=== PATIENT | male | born 1985 ===

== ENCOUNTER 2016-02-25 16:50 | Emergency (ER) | payer OTHER ==
[2016-02-25] MEDS ORDERED: Sulfamethox/Trimethoprim SS 400/80* TAB PO ONE (18:19)
[2016-02-25] MEDS ORDERED: Cephalexin CAP* 500 MG PO ONE (18:20)
[2016-02-25] MEDS ORDERED: Sulfamethox/Trimethoprim DS 800/160* TAB PO ONE (18:27)
--- NOTE | 2016-02-25 18:50 | UC ---
Hand/Wrist HPI - HPI Summary HPI Summary: 30 yo male with left middle finger pain and swelling abraided finger 4 days ago no pip red swollen limited ROM fever and shaking chills no hx MRSA - History Of Current Complaint Chief Complaint: UCUpperExtremity Stated Complaint: FINGER INJURY Time Seen by Provider: 02/25/16 18:11 Hx Obtained From: Patient Mechanism Of Injury: abraided when it was caught in a door Onset/Duration: Sudden Onset Severity Initially: Mild Severity Currently: Moderate Pain Intensity: 7 Pain Scale Used: 0-10 Numeric Character Of Pain: Aching, Throbbing Aggravating Factor(s): Movement Alleviating: Nothing Associated Signs And Symptoms: Positive: Swelling, Redness, Fever Related History: Dominant Hand Right - Allergies/Home Medications Allergies/Adverse Reactions: Allergies Allergy/AdvReac Type Severity Reaction Status Date / Time No Known Allergies Allergy Verified 02/25/16 18:09 Home Medications: Home Medications NK [No Home Medications Reported] 02/25/16 [History Confirmed 02/25/16] PMH/Surg Hx/FS Hx/Imm Hx Previously Healthy: Yes - Surgical History Surgical History: None - Family History Known Family History: Negative: Cardiac Disease, Hypertension, Diabetes - Social History Alcohol Use: Daily Substance Use Type: Marijuana Substance Use Comment - Amount & Last Used: daily Smoking Status (MU): Never Smoked Tobacco Review of Systems Constitutional: Fever, Chills Skin: Negative Eyes: Negative ENT: Negative Respiratory: Negative Cardiovascular: Negative Gastrointestinal: Negative Genitourinary: Negative Motor: Negative Neurovascular: Negative Musculoskeletal: Arthralgia, Decreased ROM Neurological: Negative Psychological: Negative All Other Systems Reviewed And Are Negative: Yes Physical Exam Triage Information Reviewed: Yes Appearance: Well-Appearing, No Pain Distress, Well-Nourished Vital Signs: Initial Vital Signs Temp 100.8 F 02/25/16 18:03 Pulse 115 02/25/16 18:03 Resp 16 02/25/16 18:03 BP 134/84 02/25/16 18:03 Pulse Ox 100 02/25/16 18:03 Vital Signs Reviewed: Yes Eyes: Positive: Conjunctiva Clear ENT: Positive: Hearing grossly normal. Negative: Nasal congestion, Nasal drainage, Tonsillar exudate, Trismus, Muffled/hoarse voice Neck: Positive: Supple, Nontender Respiratory: Positive: Lungs clear, Normal breath sounds, No respiratory distress, No accessory muscle use Cardiovascular: Positive: RRR, No Murmur Musculoskeletal: Positive: ROM Limited @, Edema @ Neurological Exam: Normal Neurological: Positive: Alert Psychological: Positive: Normal Response To Family Skin Exam: Normal Hand/Wrist Course/Dx - Differential Dx/Diagnosis Provider Diagnoses: left middle finger infection. ?septic PIP joint/vs abscess. cellulitis and ascending lymphangiitis - Physician Notifications Discussed Patient Care With: Dr. Williamson ([id number])...he will see pt here Instructed by Provider To: Admit As Inpatient Discharge - Discharge Plan Condition: Guarded Disposition: OTHER Discharge Disposition Comment: direct admission Referrals: Jaleel Williamson MD [Medical Doctor] - Images Hands: 1 - red/swollen. unable to extend finger 2 - ascending lymphangitis
--- NOTE | 2016-02-25 18:54 | RAD ---
Indication: Left finger infection. 3 views of the left middle finger demonstrates soft tissue swelling in the dorsal aspect of the proximal interphalangeal joint. No fracture or abnormal erosions noted. IMPRESSION: No fracture is identified. Soft tissue swelling is noted dorsal to the proximal interphalangeal joint.
[2016-02-25] MEDS ORDERED: Bupivacaine 0.25% SDV* 30 ML ONE (19:03)
--- NOTE | 2016-02-25 20:53 | PN ---
Progress Note - Progress Note Note: Please see my full dictated consult note. Briefly, I saw Mr. Colunga in the emergency room. He got the finger caught in a restaurant door a few days ago. He had a superficial volar laceration over the PIP joint. This was resolving uneventfully until this morning he began to have pain in the area. It became intense throughout the day. 3 hours prior to coming to the [facility] it began to turn red and he felt somewhat ill so he came to the [facility]. Upon arrival here he was febrile. I was called and I examined the finger. There is significant swelling in the area of the PIP joint but passive flexion from 10 -90 degrees without too much pain. There is some lymphangitis and mottling of the skin over the dorsal hand. I performed and I&D. Cultures were taken and will be sent to the hospital in the morning. There was significant concern to me that on the dorsum of the hand there was separation at the fascial planes without jason purulence but more murky/seropurulent fluid. Upon probing the separation of the fascial planes tracked to the dorsum of the hand. I performed a separate incision just proximal and ulnar to the PIP joint. When I probed this wound the separation at the fascial planes continued up to the level of the dorsal wrist. I made another incision just ulnar to Rishi's tubercle. I could easily pass the q-tip between the two incisions. I could not probe the q-tip any further proximal. He has received a dose of bactrim and keflex in the [facility] here. Xray is negative for bony erosions or injury. We do not have labs available here at the [facility]. Given the rapidity with which the infection has progressed and the extent of soft tissue destruction that has occurred in a relatively brief period couple with his systemic symptoms, I think he would best benefit from a transfer to [place] where they have additional hospital staffing and he can be observed much more closely than in our facility.
[2016-02-25 21:13] VITALS: BP 131/63
--- NOTE | 2016-02-26 01:28 | CONS ---
CONSULTATION REPORT / PROCEDURE REPORT DATE OF CONSULTATION: 02/25/16 - [facility] CHIEF COMPLAINT: Left hand infection. HISTORY OF PRESENT ILLNESS: Angel is a 30-year-old male who 3 or 4 days ago got his finger caught in a restaurant door. There was nothing unusual about the door. It was a clean door. He had a little bit of a superficial abrasion over the PIP joint and it was a little sore. Ultimately, he did not do anything much of it and it was getting better and he was moving the finger until this morning. He started to develop significant pain in the area of the left middle finger around the PIP joint. He became concerned as the day progressed and the pain increased in its intensity. Ultimately, 3 to 4 hours prior to coming the [facility], it started to turn red and hot and so he came into the [facility]. Additionally, he was feeling a little feverish. He denies having anything happened like this before. He denies history of diabetes or any other immunocompromising disease. He is a health young man. PAST MEDICAL HISTORY: No history of infections. Overall, he is healthy young man. PAST SURGICAL HISTORY: No surgeries to the hand or arm. MEDICATIONS: None. ALLERGIES: No known drug allergies. FAMILY HISTORY: Reviewed and noncontributory. SOCIAL HISTORY: He occasionally smoke marijuana. He is . He has multiple children. He does not smoke tobacco. REVIEW OF SYSTEMS: A 10-point review of systems was conducted and is significant for fever and generally just feeling a little sick. He has also had significant left middle finger and hand pain. PHYSICAL EXAMINATION: General: Awake, alert, and oriented. Skin: The skin is intact with significant erythema over the middle finger over the areas of the middle phalanx and proximal phalanx. The skin is very tense. There is some area of fluctuance and fullness about the dorsum of that middle finger. The touch of the scab on the volar middle finger. I wiped the scab off and there is completely closed and healthy skin underneath the scan and no evidence of any prior deep incision or deep laceration. I am able to passively move the finger from 15 to 70 degrees of the PIP joint without too much discomfort. He has some lymphangitic streaking at the dorsum of the left hand and to the level of the dorsal wrist. There is a little bit of mottling of the skin on the dorsum of the hand. Vital signs: Temperature in the emergency room here was 100.8 and pulse is 115, and blood pressure is 134/84. IMAGING: X-rays of the left middle finger were taken and reviewed by me. I do not see any evidence of a bony injury. I do not see any evidence of bony erosion. The soft tissue swelling over the dorsum of the fingers appreciated. LABORATORY: Not available. IMPRESSION: Rapidly progressive left middle finger infection in a patient with systematic symptoms and signs on his vitals. I am concerned for abscess in that left middle finger. PLAN: I performed an I and D, please see the dedicated procedure portion of my note for full description of that procedure. Ultimately, my findings on the I and D coupled with the fact that this is rapidly progressed over less than 24 hours really over about 12 hours and the fact that he is showing signs of being systematically ill as his pulse is 115 and his temperature is 101. I rechecked his temperature later and it was again 101.1 and the fact that he has significant tracking along the fascial plane all the way up to the dorsum of the wrist. It makes me think that he would benefit from close round- the-clock monitoring at a very minimum. I have temporized the situation by performing a provisional incision and drainage here at the [facility]. We are going to transfer him up to [place], so that he can have further monitoring and IV antibiotics and if needed further debridement. I have spoken with the emergency room physician up in [place] and they have agreed to accept the patient. Please note that greater than 50 minutes was spent with the patient over which half was spent in counseling and the coordination of care. DESCRIPTION OF PROCEDURE: Written consent was obtained. The finger was anesthetized with 0.25% Marcaine without epinephrine via digital block. We then awaited for 15 minutes past and then I went ahead and cleansed the hand and middle finger with Betadine. Utilizing sterile drapes and sterile technique , I then went ahead and made an incision over the mid lateral aspect on the radial side of the middle finger. I then used my iris scissors to enter the wound and there was immediate apparent separation of the skin and subcutaneous tissue along the fascial planes right off of the paratenon over the entire dorsum of the PIP joint and of the proximal phalanx. I went ahead and took 2 deep cultures. I then went ahead and probed the wound with a Q-tip and it was noted that the separation at the fascial planes continued up over the area of the proximal phalanx and over on to the dorsum of the metacarpophalangeal joint and the hand. Based off of this finding and the fact that I was still in the anesthetized area, I went ahead and made a separate incision just proximal and ulnar to the metacarpophalangeal joint about 2 to 3 cm in length. Again I used the tenotomy scissors and the subcutaneous tissue and immediately came to the level of the fascial separation. I could easily pass the Q-tip from the finger wound up into the dorsal hand wound. I then went ahead and took a fresh Q-tip and probed the wound and noted that the separation of the fascial planes continued up to the level of the dorsal wrist. I went ahead and utilized additional 0.25% Marcaine to anesthetized the area and then I made a separate incision just ulnar to Rishi tubercle at the level of the dorsal wrist. Again, I used the tenotomy scissors to separate the subcutaneous tissue and then I could easily pass the probe from the dorsal hand wound to the dorsal wrist wound. I tried to probe further proximally, but I could not. The separation of the fascial planes extended a little bit radially and more prominently ulnarly. I went ahead and soaked the wounds for 20 minutes in warm soapy water. He tolerated this well. I then went ahead and placed iodoform packing in each of the 3 wounds. The wounds were then dressed with 4x4s and Eron wrap. He tolerated the procedure very well. There was ultimately maybe 20 cc of blood loss. [id number]/[facility] #: [id number] KISHORE
== END 2016-02-25 21:10 | disposition left against medical advice (07) ==
LOC: UCEAST 16:50
DX: S60.413A Abrasion of left middle finger, initial encounter (principal); L03.012 Cellulitis of left finger; L08.9 Local infection of the skin and subcutaneous tissue, unspecified; W23.0XXA Caught, crushed, jammed, or pinched between moving objects, initial encounter; Y93.9 Activity, unspecified; Y92.810 Car as the place of occurrence of the external cause; I88.9 Nonspecific lymphadenitis, unspecified
CPT/HCPCS: 10060; 73140; 87070; 87073; 87077; 87184; 87186; 87205; 99203; A9270-GY; G0463